=== PATIENT | female | born 2000 | race Caucasian/White ===

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

== ENCOUNTER 2023-08-12 15:51 | Emergency (ER) | payer OTHER, SELFPAY ==
--- NOTE | ~2023-08-12 | CT_ITS ---
Non-contrast CT scan of the Abdomen and Pelvis Clinical indication: Kidney stone Technique: 2.5 mm axial scans were obtained through the abdomen and pelvis without intravenous or or al contrast. Dose reduction technique was used on this scan by utilizing automated exposure control a nd iterative reconstruction technique. The dose-length product (DLP) was 1516.13 mGy-cm. COMPARISON: 07/18/2020 Findings: Images through the lung bases reveal no abnormalities. There is a 3 mm stone at the right UVJ, with minimal right hydroureteronephrosis. There are additiona l small nonobstructing right renal stones. No left renal or left ureteral stone. No left hydronephros is. The liver, spleen, pancreas, gallbladder, and adrenals appear normal. There is no aortic aneurysm. There is no evidence of bowel obstruction. Images through the pelvis were performed. There is no evidence of ascites or lymphadenopathy. Urinary bladder otherwise unremarkable. No adnexal mass seen. No ascites. There are bilateral L5 pars intera rticularis defects, without subluxation at this time. Impression: 3 mm right UVJ stone with mild right hydroureteronephrosis. Additional small right nonobstructing renal stones. Reviewed, dictated and finalized at location . TICS NURSE Impression: 3 mm right UVJ stone with mild right hydroureteronephrosis. Additional small right nonobstructing renal stones.
[2023-08-12 15:53] VITALS: BP 144/94; PULSE 100; RESP 20; TEMP 36.3; O2SAT 97
--- NOTE | 2023-08-12 16:03 | ED.ABDPAIN ---
HPI - Abdominal Pain General Chief Complaint: Abdominal Pain Stated Complaint: flank pain Time Seen by Provider: 08/12/23 16:02 Source: patient and family (parents) Mode of arrival: ambulatory Limitations: no limitations History of Present Illness HPI narrative: 23 yo female with pmh kidney stones presents with right flank pain beginning 2 hours ago. Never required surgical intervention for kidney stones, followed up with urologist (name unknown, clinic was located in [facility]). Pain started upon waking. No gross hematuria, dysuria, urgency, frequency. She reports being diaphoretic. Nauseated but no vomiting. LBM today, no diarrhea, constipation, blood. 10/10 pain. No trauma or repetitive movements. Took Tylenol as well a tablet of her father's Vicodin. Pain is intermittent, occuring in waves. Pain radiates into abdomen. Related Data Allergies Allergy/AdvReac Type Severity Reaction Status Date / Time No Known Allergies Allergy Verified 12/18/20 09:54 [facility] Past Medical History Medical History Calculus, renal Surgical History Surgical History H/O exploratory laparotomy Family History Family History Father Kidney stone Other Heart disease Social History Social History (Updated 12/18/20 @ 10:38 by Gayatri Frank, ASSET CARD CLERK) Smoking status: Never smoker Alcohol intake: never Substance use: never Living arrangements: with family Gender identity (if verbalized by the patient): Female Exam Narrative: GENERAL: well-nourished, appears uncomfortable. HEAD: Normocephalic, atraumatic. EYES: Non injected, non icteric ENT: Nares clear, no rhinorrhea or epistaxis. NECK: Supple. CHEST: Speaking in full sentences, non labored. No respiratory distress. HEART: Regular (borderline tachycardic) rate and rhythm. . ABDOMEN: Soft, obese, nondistended. Non tender to palpation. No rigidity or gurading. : No CVA tenderness bilaterally. EXTREMITIES: Normal range of motion. No edema. SKIN: Warm, dry, no rash. NEURO: No focal deficits. Alert and oriented x3. PSYCH: Normal mood and affect. Course Vital Signs Vital signs: Vital Signs Temperature 97.3 F L 08/12/23 15:53 Pulse Rate 100 08/12/23 15:53 Respiratory Rate 20 08/12/23 15:53 Blood Pressure 144/94 H 08/12/23 15:53 Pulse Oximetry 97 08/12/23 15:53 Oxygen Delivery Room Air 08/12/23 15:53 Temperature 97.3 F L 08/12/23 15:53 Pulse Rate 99 08/12/23 16:41 Respiratory Rate 24 H 08/12/23 16:41 Blood Pressure 116/68 08/12/23 16:41 Pulse Oximetry 99 08/12/23 16:41 Oxygen Delivery Room Air 08/12/23 15:53 MDM - Abdominal Pain MDM Narrative Medical decision making narrative: Patient is a 23 yo who presents with colicky R flank pain. i do suspect a kidney stone given description of pain. She appears uncomfortable and is nauseated. RBCs in urine. Cr is 1.1 (patient range 0.9 - 1.1 per review of EMR). Patient given fluids and multiple rounds of pain medications / antiemetics. CT does demonstrate a stone as below. She is reassessed and feeling better. Discharged home with pain medication, tamsulosin, and ondansetron and a strainer and instructions to follow up with urology. Differential Diagnosis Differential diagnosis: Likely abdominal pain, acute appendicitis, calculus of kidney, constipation and small bowel obstruction Medical Records Attestation: I reviewed the patient's medical records. Lab Data Attestation: I reviewed the patient's lab results. 08/12/23 16:03 08/12/23 16:02 Labs: Lab Results 08/12/23 08/12/23 08/12/23 Range/Units 16:02 16:03 16:16 WBC 6.2 (4.5-10.0) K/mm3 RBC 5.10 (4.2-5.4) M/mm3 Hgb 14.0 (12.0-15.0) g/dL Hct 44.3 (37.0-47.0) % MCV 86.9 (80-100)
[2023-08-12 16:07] LABS: Basophils Absolute Auto 0.1 K/mm3 (0.0-0.1); Eosinophils Absolute Auto 0.1 K/mm3 (0-0.3); Eosinophils Percent Auto 1.1 % (0-4.4); Hematocrit 44.3 % (37.0-47.0); Immature Granulocyte Absolute 0.03 K/mm3 (0.00-0.031); Immature Granulocyte Percent A 0.5 % (0-0.5); Lymphocytes Absolute Auto 2.37 K/mm3 (0.9-3.2); Mean Corpuscular HGB Conc 31.6 g/dl (32-36); Mean Corpuscular Hemoglobin 27.5 pg (26-34); Mean Corpuscular Volume 86.9 fl (80-100); Mean Platelet Volume 9.8 fl (7.4-10.4); Monocytes Absolute Auto 0.5 K/mm3 (0.1-0.6); Monocytes Percent Auto 7.7 % (2.6-8.5); Neutrophils Absolute Auto 3.2 K/mm3 (1.3-6.7); Neutrophils Percent Auto 51.7 % (45.5-73.1); Platelet Count Result 239 k/mm3 (150-375); Red Cell Distribution Width 13.3 % (11.5-14.5); White Blood Count 6.2 K/mm3 (4.5-10.0)
[2023-08-12 16:18] LABS: Alanine Aminotransferase 34 U/L (6-35); Albumin Level 4.4 g/dL (3.5-5.1); Alkaline Phosphatase 100 U/L (38-126); Anion Gap 12 mmol/L (8-16); Aspartate Amino Transferase 27 U/L (14-36); Bilirubin,Total 0.6 mg/dL (0.2-1.3); Blood Urea Nitrogen 20 mg/dL (7-17); Calcium 9.3 mg/dL (8.4-10.2); Carbon Dioxide 22 mmol/L (22-30); Chloride 107 mmol/L (98-107); Estimated CRCL calculation 84 ml/min; Estimated Glomerular Filt Rate > 60; Glucose 113 mg/dL (65-110); Potassium 4.2 mmol/L (3.4-5.0); Sodium 141 mmol/L (137-145)
[2023-08-12] MEDS: ONDANSETRON INJ 4 MG/2 ML VIAL IV PUSH (16:19)
[2023-08-12] MEDS: SODIUM CHLORIDE 0.9% IV 1,000 ML 999 ML IV CONT (16:33)
[2023-08-12 16:35] LABS: Lipase 69 U/L (23-300)
[2023-08-12] MEDS: MORPHINE SULFATE (*CRX) 4 MG/ML INJ IV PUSH ×2 (16:40→17:03)
[2023-08-12 16:41] VITALS: BP 116/68; PULSE 99; RESP 24; O2SAT 99
[2023-08-12 16:46] LABS: Appearance Urine Turbid (Clear); Bacteria Urine 4+ /hpf; Bilirubin Urine Negative (Negative); Blood Urine 1+ (Negative); Color Urine Yellow (Yellow); Glucose Urine UA Negative (Negative); Ketones Urine Negative (Negative); Leukocyte Esterase Ur Negative LEU/UL (Negative); Need Manual Microscopic Reviewed; Nitrate Urine Negative (Negative); Protein Urine Trace mg/dL (Negative); Squamous Epithelial Cell Urine Moderate /hpf (Few); Urobilinogen Urine 0.2 mg/dL (<2.0)
[2023-08-12 16:48] LABS: Add Urine Microscopic? YES; Specific Grav Ur 1.038 (1.001-1.035)
[2023-08-12] MEDS: HALOPERIDOL LACTATE 5 MG/ML VIAL 2.5 MG IV PUSH (17:09)
[2023-08-12] MEDS: KETOROLAC 15 MG/ML VIAL (*BKC) IV PUSH (18:51)
[2023-08-12] MEDS: TAMSULOSIN HCL 0.4 MG CAPSULE PO (18:52)
== END 2023-08-12 19:02 | disposition home or self-care (01) ==
PROVIDERS: Emergency Provider Student in an Organized Health Care Education/Training Program
DX: N13.2 Hydronephrosis with renal and ureteral calculous obstruction (principal)
CPT/HCPCS: 36415; 74176; 80053; 81001; 81025; 83690; 85025; 87086; 87088; 96361; 96365; 96375; 96376; 99284; A9270; J0696; J1630; J1885; J2270; J2405; J7030